=== PATIENT | female | born 1955 | race Caucasian/White ===

== ENCOUNTER 2019-01-27 13:37 | Outpatient (CLI) | payer BC ==
[2019-01-27 17:34] LABS: BASOPHILS % (AUTO) 0.7 %; EOSINOPHILS # (AUTO) 0.1 10^3/uL (0.0-0.7); EOSINOPHILS % (AUTO) 1.3 %; HGB - HEMOGLOBIN 14.2 g/dL (12.0-16.0); LYMPHOCYTES # (AUTO) 1.8 10^3/uL (1.5-3.5); LYMPHOCYTES % (AUTO) 38.1 %; MEAN CORPUSCULAR HEMOGLOBIN 30.3 pg (27.0-31.0); MEAN CORPUSCULAR HGB CONC 32.6 g/dL (32.0-36.0); MEAN CORPUSCULAR VOLUME 92.9 fL (81.0-99.0); MEAN PLATELET VOLUME 10.6 fL (7.9-10.8); MONOCYTES # (AUTO) 0.3 10^3/uL (0.0-1.0); MONOCYTES % (AUTO) 7.4 %; NEUTROPHILS # (AUTO) 2.4 10^3/uL (1.5-6.6); NEUTROPHILS % (AUTO) 52.1 %; PLT - PLATELET COUNT 243 10^3/uL (130-450); RED BLOOD COUNT 4.68 10^6/uL (4.20-5.40); RED CELL DISTRIBUTION WIDTH 12.8 % (12.0-15.0); WHITE BLOOD COUNT 4.6 x10^3/uL (4.8-10.8)
[2019-01-27 18:09] LABS: ALBUMIN 4.4 g/dL (3.2-5.5); ALBUMIN/GLOBULIN RATIO 1.5 (1.0-2.2); ALKALINE PHOSPHATASE 61 IU/L (42-121); ALT ALANINE AMINOTRANSFERASE 28 IU/L (10-60); AST ASPARTATE AMINOTRANSFERASE 21 IU/L (10-42); BILIRUBIN,TOTAL 0.6 mg/dL (0.2-1.0); BUN - BLOOD UREA NITROGEN 12 mg/dL (6-20); CALCIUM 9.5 mg/dL (8.5-10.3); CARBON DIOXIDE - CO2 25 mmol/L (21-32); CHLORIDE 105 mmol/L (101-111); CHOL/HDL RATIO 5.8 (<4.4); CHOLESTEROL 230 mg/dL; CREATININE 0.7 mg/dL (0.4-1.0); GFR - MDRD 85 (>89); GLUCOSE 97 mg/dL (70-100); HDL CHOLESTEROL 40 mg/dL; LDL CHOLESTEROL,CALCULATED 158 mg/dL; SODIUM 140 mmol/L (135-145); TOTAL PROTEIN 7.4 g/dL (6.7-8.2); VLDL CHOLESTEROL 32 mg/dL
[2019-01-27 18:31] LABS: HEMOGLOBIN A1C 0.54 g/dL; HEMOGLOBIN A1C % 5.4 % (4.6-6.2)
[2019-01-27 19:06] LABS: CRP - C-REACTIVE PROTEIN < 1.0 mg/dL (0-1.0)
== END 2019-01-27 13:38 | disposition home or self-care (01) ==
LOC: LAB.S 13:37
PROVIDERS: ATTEND Family Medicine
DX: L03.116 Cellulitis of left lower limb (principal)
CPT/HCPCS: 36415; 80053; 80061; 83036; 83721; 84443; 85025; 85651; 86140

== ENCOUNTER 2019-02-10 14:50 | Outpatient (CLI) | payer BC ==
--- NOTE | 2019-02-10 16:27 | XRAY Report ---
Reason: LEG PAIN, CHRONIC, LEFT SCREENING MAMMO Procedure Date: 02/10/2019 Accession Number: [id number] / [id number] Procedure: XRS - Knee 2 View LT CPT Code: FULL RESULT: EXAM: LEFT KNEE RADIOGRAPHY EXAM DATE: 02/10/2019 03:30 PM. CLINICAL HISTORY: Chronic left leg pain. COMPARISON: LEG LOWER LT 02/10/2019 3:20 PM. TECHNIQUE: 2 views. FINDINGS: Bones: Normal. No fractures or bone lesions. Joints: Normal. No effusion. No subluxations. Soft Tissues: Normal. No soft tissue swelling. IMPRESSION: Normal knee radiography. [facility]
--- NOTE | 2019-02-10 16:28 | XRAY Report ---
Reason: LEG PAIN, CHRONIC, LEFT Procedure Date: 02/10/2019 Accession Number: [id number] / [id number] Procedure: XRS - Tib/Fib LT CPT Code: FULL RESULT: EXAM: LEFT TIBIA/FIBULA RADIOGRAPHY EXAM DATE: 02/10/2019 03:20 PM. CLINICAL HISTORY: Chronic left leg pain. COMPARISON: None. TECHNIQUE: 2 views. FINDINGS: Bones: Normal. No fracture or bone lesion. Joints: The visualized knee and ankle joints are normal. No effusions. Soft Tissues: Normal. No soft tissue swelling. IMPRESSION: Normal tibia/fibula radiography. [facility]
--- NOTE | 2019-02-11 08:59 | Mammography Report ---
Reason: SCREENING MAMMO Procedure Date: 02/10/2019 Accession Number: [id number] / [id number] Procedure: [facility] - Screening Mammo Dig Bilat CPT Code: FULL RESULT: EXAM: Screening Mammo Dig Bilat DATE: 02/10/2019 3:29 PM CLINICAL HISTORY: Screening encounter. Family history of breast cancer in a sister at the age of 40. New baseline mammogram. TECHNIQUE: (B) - Bilateral CC, laterally exaggerated CC, MLO views were obtained. COMPARISON: None PARENCHYMAL PATTERN: (A) - The breast(s) demonstrate(s) scattered fibroglandular densities. FINDINGS: Typically benign calcifications are noted. In the left breast approximately 3 cm from the nipple, 6:00 position is a hypodense well-circumscribed 0.8 x 1.0 cm nodule. In absence of prior comparison imaging demonstrating long-term stability, this should be further characterized by spot views and focused left breast ultrasound. There is no associated architectural distortion and there are no associated suspicious calcifications. There are no suspicious masses, calcifications, or areas of distortion in the right breast. IMPRESSION: Incomplete examination. BI-RADS category 0. RECOMMENDATION: ([facility]) - Additional views using both Mammography and Ultrasound recommended. Left breast BI-RADS CATEGORY: (0) - Incomplete Examination - need additional evaluation. STANDARD QUALIFYING STATEMENTS: 1. This examination was reviewed with the aid of Computer-Aided Detection (CAD). 2. A negative or benign imaging report should not preclude biopsy if clinically suspicious findings are present. 3. Dense breasts may obscure an underlying neoplasm. 4. This examination was reviewed without the aid of 3D breast imaging (tomosynthesis).
== END 2019-02-10 14:51 | disposition home or self-care (01) ==
LOC: DI.S 14:50
PROVIDERS: ATTEND Family Medicine
DX: Z12.31 Encounter for screening mammogram for malignant neoplasm of breast (principal); Z80.3 Family history of malignant neoplasm of breast; M79.605 Pain in left leg
CPT/HCPCS: 77067

== ENCOUNTER 2019-03-04 09:42 | Outpatient (CLI) | payer BC ==
--- NOTE | 2019-03-04 12:01 | Mammography Report ---
Reason: ABNORMAL MAMMOGRAM Procedure Date: 03/04/2019 Accession Number: [id number] / [id number] Procedure: [facility] - Diag Special Views Dig LT CPT Code: FULL RESULT: EXAM: Diag Special Views Dig LT, Breast Unilateral Ultrasound Limited DATE: 03/04/2019 10:36 AM CLINICAL HISTORY: Follow-up asymmetric density left retroareolar breast. COMPARISON: New baseline of 02/10/2019 ADDITIONAL VIEWS LEFT BREAST: TECHNIQUE: (L) - Left spot compression and true lateral views were obtained FINDINGS: The density in the retroareolar left breast persists on additional views. LEFT BREAST ULTRASOUND: Technique: Real-time scanning by the video specialist with me present. Saved static images reviewed. FINDINGS: In the retroareolar 12:00 position left breast is an anechoic 5 x 5 x 3 mm well-circumscribed avascular nodule. Increased through transmission is not seen. Question solid nodule versus technical factors related to nodule position. IMPRESSION: Probably Benign. BI-RADS category 3. Left breast. RECOMMENDATION: (6MOS) - Recommend 6 month follow-up exam. Left breast mammogram and ultrasound. BI-RADS CATEGORY: (3) - Probably Benign. STANDARD QUALIFYING STATEMENTS: 1. This examination was not reviewed with the aid of Computer-Aided Detection (CAD). 2. A negative or benign imaging report should not preclude biopsy if clinically suspicious findings are present. 3. Dense breasts may obscure an underlying neoplasm. 4. This examination was reviewed with the aid of 3D breast imaging (tomosynthesis).
== END 2019-03-04 09:43 | disposition home or self-care (01) ==
LOC: DI 09:42
PROVIDERS: ATTEND Family Medicine
DX: N64.9 Disorder of breast, unspecified (principal)
CPT/HCPCS: 76642